=== PATIENT | female | born 1955 ===

== ENCOUNTER → 2021-12-19 | Outpatient (CLI) | payer MEDICAID | END | disposition home or self-care (01) | LOC: RT 09:42 | PROVIDERS: ATTEND Internal Medicine Pulmonary Disease | DX: J96.11 Chronic respiratory failure with hypoxia (principal); R05.3 Chronic cough; I26.99 Other pulmonary embolism without acute cor pulmonale; U09.9 Post COVID-19 condition, unspecified | CPT/HCPCS: 36415; 87426; 94060 ==